=== PATIENT | female | born 1950 | race Caucasian/White ===

== ENCOUNTER 2021-02-09 17:37 | Emergency (ER) | payer MEDICARE, SELFPAY ==
[2021-02-09 17:38] VITALS: BP 182/91; PULSE 75; RESP 23; TEMP 36.7; O2SAT 99; BMI 23.3
[2021-02-09 17:49] VITALS: BP 182/91; PULSE 79; RESP 23; O2SAT 100
--- NOTE | 2021-02-09 17:59 | EKG12_ITS ---
Test Reason : CP Blood Pressure : / mmHG Vent. Rate : 077 BPM Atrial Rate : 077 BPM P-R Int : 126 ms QRS Dur : 082 ms QT Int : 376 ms P-R-T Axes : 085 063 067 degrees QTc Int : 425 ms Normal sinus rhythm Nonspecific ST abnormality Abnormal ECG Confirmed by ZEHRA MONTOYA, ARABELLA ([id number]), graphic editor MICHEL VILLARREAL ([id number]) on 02/11/2021 1:29:19 PM Referred By: ADOLPH Confirmed By:ARABELLA SHAHID MD
--- NOTE | 2021-02-09 17:59 | RAD_ITS ---
STUDY: X-RAY CHEST REASON FOR EXAM: Female, 70 years old. chest pain sternal pain for several hours TECHNIQUE: Frontal portable view of the chest COMPARISON: None. FINDINGS: The lungs are clear and hyperinflated. There is no demonstrated pleural abnormality. Normal size heart. Normal mediastinum and miguel angel. Normal visualized pulmonary arteries. Normal visualized aortic arch and descending thoracic aorta. Normal visualized thoracic spine. Normal visualized ribs, clavicles, and shoulders. There is no demonstrated abnormality of the visualized soft tissue structures of the upper abdomen. RAD/Chest 1 View (Portable) IMPRESSION: Mild to moderate hyperinflation/emphysema. No acute disease. Electronically Signed: Radha Santo MD at 18:59 EST Tel , Service support ,
--- NOTE | 2021-02-09 18:03 | NURSING ---
NO OLD EKGS
[2021-02-09 18:14] LABS: Absolute Lymphocyte Count 1.67 X10^3/uL (0.83-4.51); Absolute Neutrophil Count 7.5 X10^3/uL (2.0-7.7); Basophil# 0.07 X10^3/uL; Basophil% 0.7 % (0-1); Eosinophil# 0.08 X10^3/uL; Eosinophils% 0.8 % (0-5); Hematocrit 45.4 % (37-47); Hemoglobin 14.7 g/dL (12.0-15.0); Lymphocyte # 1.67 X10^3/ul (0.83-4.51); Lymphocyte % 16.5 % (19-41); Mean Corp Hgb Conc 32.4 g/dL (32-36); Mean Corpuscular Volume 89.5 fL (81-99); Mean Platelet Vol. 10.5 fl (6.2-12.0); Monocyte# 0.79 X10^3/uL; Monocyte% 7.8 % (0-10); NRBC Flagged by Analyzer 0 % (0-5); Neutrophil # 7.49 X10^3/uL (2.7-7.7); Neutrophil % 73.9 % (47-70); Platelet Count 326 K/mm3 (150-450); RBC Distribution Width CV 12.6 % (11.6-14.6); RBC Distribution Width SD 41.1 fl (35.1-43.9); Red Blood Count 5.07 M/mm3 (4.2-5.4); White Blood Count 10.1 K/mm3 (4.4-11.0)
[2021-02-09] MEDS: Aspirin 81 MG TAB.CHEW 324 MG PO (18:19)
[2021-02-09 18:22] LABS: D-Dimer Quantitative (DVT/PE) 0.29 FEU/ug/m (0.27-0.49)
[2021-02-09 18:28] LABS: Anion Gap 8 (5-15); BUN 16 mg/dL (7-18); BUN/Creat Ratio 17.2 RATIO (10-20); Calcium,Total 9.7 mg/dL (8.5-10.1); Chloride 105 mmol/L (98-107); Creatinine, Serum 0.93 mg/dL (0.55-1.02); EST Glomerular Filtration Rate 64 mL/min (>60); Est Glom Filt Rate - Afr Amer 77 mL/min (>60); Glucose 101 mg/dL (74-106); Potassium 3.8 mmol/L (3.5-5.1); Sodium Level 142 mmol/L (136-145); Troponin-I HS < 3 pg/mL (3.0-54.0)
--- NOTE | 2021-02-09 18:48 | EDS_ITS ---
HPI History of Present Illness Chief Complaint: Chest Pain Informant: patient and spouse/S.O. Onset/Context/Timing Onset: Hours (Onset 1500) Activity at onset: sudden and - (Patient states she was using a roller to make cookies) Timing: Intermittent (Distally intermittent now constant) Quality: Positive for Heaviness and Pressure Location: Substernal Current Severity: Mild Maximum Severity: Moderate Worsened By: Nothing Associated Symptoms: Positive for Dyspnea and - (Patient to left scapula.); Negative for Nausea, Vomiting, Diaphoresis, Cough, Fever, Lightheadedness, Acid Reflux and Palpitations Narrative Prior Similar Symptoms: No CVD Risk Factors: Positive for Hypertension (Patient's been on blood pressure meds for the past 2 weeks. She did not have problems with blood pressure until her second cataract surgery.); Negative for Diabetes, Hypercholesterolemia, Family History 1' </=55 and Smoking PE Risk Factors: Negative for Recent Travel/Surgery, Recent Immobilization, Prior DVT or PE, Cancer and OCP + Smoking + >/=35 TAD Risk Factors: Positive for Hypertension; Negative for Marfan's Syndrome and Family History [facility] Medical History HTN (hypertension) Home Medications lisinopril 10 mg PO DAILY 02/09/21 [History Last Taken Unknown] Allergy/AdvReac Type Severity Reaction Status Date / Time glycerin Allergy Rash Verified 02/09/21 17:49 Surgical History History of abdominal surgery History of cataract surgery Social History (Updated 02/09/21 @ 18:[address] Nino Khan MD) household members: spouse Smoking Status: Never smoker alcohol intake: never substance use type: does not use ROS ROS ED Constitutional Constitutional ED: Denies chills, fever(s), subjective, sweats or weight loss Eyes Eyes: Reports none ENT ENT ED: Denies ear pain, rhinorrhea or sore throat Cardiovascular Cardiovascular: Reports as per HPI; Denies orthopnea or paroxysmal nocturnal dyspnea Respiratory/Chest Respiratory/Chest: Reports dyspnea; Denies cough, dyspnea on exertion, orthopnea, paroxysmal nocturnal dyspnea or sputum Gastrointestinal Gastrointestinal: Denies abdominal pain, constipation, diarrhea, melena, nausea or vomiting Genitourinary Genitourinary ED: Denies dysuria, hematuria or urinary frequency Musculoskeletal Musculoskeletal: Reports back pain; Denies arthralgias, myalgias or neck pain Integumentary Denies abscess or rash Neurologic Neurologic: Denies headache(s) or weakness Endocrine Endocrinology: Denies polydipsia, polyphagia or polyuria Hematologic/Lymphatic Hematologic/Lymphatic: Denies easy bruising EXAM Physical Exam Const Vital Signs: 02/09/21 17:38 02/09/21 17:49 02/09/21 17:50 Temperature 98.1 F Temperature Source Oral Pulse Rate 75 79 Respiratory Rate 23 H 23 H Respiratory Effort Normal Non-Labored Respiratory Pattern Normal Blood Pressure 182/91 H 182/91 H Blood Pressure Mean 121 121 Pulse Ox 99 100 Oxygen Delivery Method Room Air Room Air 02/09/21 18:28 02/09/21 19:51 02/09/21 20:49 Temperature Temperature Source Pulse Rate 73 68 Respiratory Rate 16 16 Respiratory Effort Respiratory Pattern Blood Pressure 148/72 H 142/76 H Blood Pressure Mean 97 98 Pulse Ox 97 98 Oxygen Delivery Method Room Air Room Air Room Air Positive well nourished and well developed General Appearance ED: well developed and NAD; Negative for pallor HEENT Reports moist mucous membranes HEENT Narrative: Nares patent. Ears normal. normocephalic Eyes PERRL and EOMs intact bilaterally General Eye ED: Negative for pale conjunctiva or scleral icterus Neck no lymphadenopathy, supple and no JVD Neck Narrative: Trachea midline. Patient has no carotid bruits. She states she has 55% stenosis of the left carotid artery. Chest Wall palpation of chest normal Resp normal respiratory effort Effort and Inspection: respiratory distress Cardio regular rate, regular rhythm, S1 normal heart sound, S2 normal heart sound and no murmurs GI normal to inspection, nondistended, normoactive bowel sounds, soft to palpation, non-tender, non-distended and no masses; Negative for hepatosplenomegaly Back/Spine no CVA tenderness and no thoracic nor lumbar tenderness Extremity normal to inspection General Extremety ED: Negative for edema, pulses abnormal or tenderness General Extremity: Negative for edema or pulses abnormal Neuro oriented x3 Sensorium / Orientation: awake and alert Psych mental status grossly normal Skin no rashes or lesions noted and no wounds General Skin Exam: Negative for jaundice or pallor Heart Score History: Slightly/Non-Suspicious ECG: Normal Age: >/= 65 years Risk Factors: 1 or 2 Risk Factors Troponin: </= Normal Limit Score: 3 MDM MDM MDM Narrative Medical decision making narrative: Patient presents with chest discomfort. Need to rule out cardiac etiology versus noncardiac etiology. Since there is a pleuritic component D-dimer was obtained. D-dimer was normal. White count and H&H are normal. Electrolyte panel is normal. GFR is normal. First troponin is less than 3. Lab Data Attestation: I reviewed the patient's lab results. Lab results narrative: First troponin is less than 3. Delta is less than 7. Negative predictive value of 100%. Patient was discharged home. She was informed the cause of her pain is unknown. D-dimer was negative since she had pleuritic pain. Chest x-ray was normal. Labs: Laboratory Results - last 24 hr 02/09/21 02/09/21 02/09/21 17:45 17:45 17:45 WBC 10.1 RBC 5.07 Hgb 14.7 Hct 45.4 MCV 89.5 MCH 29.0 MCHC 32.4 RDW Std Deviation 41.1 RDW Coeff of Deysi 12.6 Plt Count 326 MPV 10.5 Immature Gran % (Auto) 0.300 Neut % (Auto) 73.9 H Lymph % (Auto) 16.5 L [place]atte % (Auto) 7.8 Eos % (Auto) 0.8 Baso % (Auto) 0.7 Absolute Neuts (auto) 7.5 Absolute Lymphs (auto) 1.67 Nucleated RBC % 0 D-Dimer Quant (PE/DVT) 0.29 Sodium 142 Potassium 3.8 Chloride 105 Carbon Dioxide 29.0 Anion Gap 8 BUN 16 Creatinine 0.93 Estim Creat Clear Calc 54.20 Est GFR (MDRD) Af Amer 77 Est GFR (MDRD) Non-Af 64 BUN/Creatinine Ratio 17.2 Glucose 101 Calcium 9.7 Troponin I High Sens < 3 L 02/09/21 20:10 WBC RBC Hgb Hct MCV MCH MCHC RDW Std Deviation RDW Coeff of Deysi Plt Count MPV Immature Gran % (Auto) Neut % (Auto) Lymph % (Auto) Platte % (Auto) Eos % (Auto) Baso % (Auto) Absolute Neuts (auto) Absolute Lymphs (auto) Nucleated RBC % D-Dimer Quant (PE/DVT) Sodium Potassium Chloride Carbon Dioxide Anion Gap BUN Creatinine Estim Creat Clear Calc Est GFR (MDRD) Af Amer Est GFR (MDRD) Non-Af BUN/Creatinine Ratio Glucose Calcium Troponin I High Sens 4 Radiography Diagnostic Testing: Clinical Impression(s) from Imaging Studies Chest X-Ray 02/09/21 17:59 IMPRESSION: Mild to moderate hyperinflation/emphysema. No acute disease. Electronically Signed: Radha Santo MD at 18:59 EST Tel , Service support , Discharge Plan Triage Chief Complaint: Chest Pain ED Provider: Nino Khan Dx/Rx/DC Orders Clinical Impression: Central chest pain, Chest pain, pleuritic Instructions: ED Chest Pain, Noncardiac Prescriptions: No Action lisinopril 10 mg Tablet 10 mg PO DAILY RF: 0 Primary Care Provider: Dewayne Mejia Referrals: Dewayne Mejia MD [Primary Care Provider] - 3-5 Days Disposition Disposition: Home, Self Care
[2021-02-09 19:51] VITALS: BP 148/72; PULSE 73; RESP 16; O2SAT 97
[2021-02-09 20:46] LABS: Troponin-I HS 4 pg/mL (3.0-54.0)
[2021-02-09 20:49] VITALS: BP 142/76; PULSE 68; RESP 16; O2SAT 98
[2021-02-09 21:21] VITALS: BP 156/87; PULSE 66
[2021-02-09 21:26] VITALS: BP 156/87
== END 2021-02-09 21:26 | disposition home or self-care (01) ==
PROVIDERS: Emergency Provider Emergency Medicine; PCP Family Medicine
DX: R07.81 Pleurodynia (principal); I10 Essential (primary) hypertension; Z79.899 Other long term (current) drug therapy
CPT/HCPCS: 71045; 80048; 84484; 85025; 85379; 93005; 99285; A4216